=== PATIENT | male | born 1970 | race American Indian/Alaskan Native ===

== ENCOUNTER 2017-12-27 06:52 | Day surgery (SDC) | payer MEDICAID ==
[2017-12-27 07:29] VITALS: BP 137/84
[2017-12-27 09:10] LABS: Blood Urea Nitrogen 8 mg/dL (9-20)
[2017-12-27 09:29] LABS: INR 0.89 (0.87-1.13)
[2017-12-27 09:30] LABS: Partial Thromboplastin Time 22.6 Sec. (24.2-36.6)
--- NOTE | 2017-12-27 11:40 | Cat Scan Report ---
CT NECK WITH CONTRAST: HISTORY: Right parotid mass. TECHNIQUE: Helical CT following IV contrast. Sagittal and coronal reformatted images. FINDINGS: The parotid and submandibular glands are normal. The carotid sheaths are intact. There is no evidence of adenopathy within the neck. The thyroid gland is normal. The glottic structures are normal. The airway is patent. Strap musculature is unremarkable. Hyoid bone and thyroid cartilage are intact. IMPRESSION: Unremarkable CT neck with contrast. No right parotid mass is identified on CT with contrast. This examination was scheduled for a CT-guided biopsy of a right parotid mass. The biopsy was canceled.
== END 2017-12-27 11:30 | disposition home or self-care (01) ==
LOC: CATHLABREC 06:52 → CT 06:52 → EDSTATUS 08:30 → CATHLABREC 11:30
PROVIDERS: ATTEND Otolaryngology
DX: D11.0 Benign neoplasm of parotid gland (principal); K11.23 Chronic sialoadenitis; Z79.01 Long term (current) use of anticoagulants
CPT/HCPCS: 36415; 70491; 82565; 84520; 85610; 85730; Q9967